=== PATIENT | female | born 1970 | race Two or more races ===

== ENCOUNTER 2018-03-13 11:39 | Outpatient (CLI) | payer OTHER ==
[~2018-03-13 11:39] MED LIST: [UNRECOGNIZED DRUG - OTHER]; [UNRECOGNIZED DRUG - OTHER]; [UNRECOGNIZED DRUG - OTHER]
== END 2018-03-13 11:48 | disposition home or self-care (01) ==
LOC: LAB 11:39
DX: N30.00 Acute cystitis without hematuria (principal); R82.79 Other abnormal findings on microbiological examination of urine

== ENCOUNTER 2018-03-18 08:34 | Outpatient (CLI) | payer OTHER | END 2018-03-18 08:47 | disposition home or self-care (01) | LOC: RAD 501 08:34 | DX: N30.00 Acute cystitis without hematuria (principal) ==

== ENCOUNTER 2018-04-05 10:37 | Outpatient (CLI) | payer OTHER | END 2018-04-05 12:10 | disposition home or self-care (01) | LOC: LAB 10:37 | DX: N30.00 Acute cystitis without hematuria (principal) ==

== ENCOUNTER 2018-04-10 07:56 | Outpatient (CLI) | payer OTHER | END 2018-04-10 15:49 | disposition home or self-care (01) | LOC: TOM 07:56 | DX: N39.0 Urinary tract infection, site not specified (principal); R82.71 Bacteriuria ==

== ENCOUNTER 2018-08-12 18:20 | Outpatient (CLI) | payer OTHER | END 2018-08-12 18:33 | disposition home or self-care (01) | LOC: RAD 18:20 | DX: J40 Bronchitis, not specified as acute or chronic (principal) ==

== ENCOUNTER → 2018-08-13 08:52 | Outpatient (CLI) | payer OTHER | END | disposition home or self-care (01) | LOC: LAB 08:52 | DX: D64.89 Other specified anemias (principal); N39.0 Urinary tract infection, site not specified; E03.8 Other specified hypothyroidism; R73.9 Hyperglycemia, unspecified; R19.09 Other intra-abdominal and pelvic swelling, mass and lump; E55.9 Vitamin D deficiency, unspecified; N95.1 Menopausal and female climacteric states ==

== ENCOUNTER → 2018-08-13 | Outpatient (CLI) | payer OTHER | END | disposition home or self-care (01) | LOC: MAMO-SONO 08:47 | DX: Z12.31 Encounter for screening mammogram for malignant neoplasm of breast (principal); N60.11 Diffuse cystic mastopathy of right breast; N60.12 Diffuse cystic mastopathy of left breast; N64.4 Mastodynia ==

== ENCOUNTER 2018-08-21 09:17 | Outpatient (CLI) | payer OTHER | END 2018-08-21 09:26 | disposition home or self-care (01) | LOC: LAB 09:17 | DX: D64.89 Other specified anemias (principal); N39.0 Urinary tract infection, site not specified; E03.8 Other specified hypothyroidism; R73.9 Hyperglycemia, unspecified; R19.09 Other intra-abdominal and pelvic swelling, mass and lump; E55.9 Vitamin D deficiency, unspecified; N95.1 Menopausal and female climacteric states ==